=== PATIENT | female | born 1950 | race Caucasian/White ===

== ENCOUNTER → 2019-05-25 | Outpatient (CLI) | payer MEDICARE, OTHER ==
[~2019-05-25] MED LIST: ASPIR 8181 M1 PO; BENADRYL25 MG PO; CEFPODOXIME PR200 M1 PO; CLONIDINE0.1 PO; COZAAR 50 MG TA50 M2 PO; DUONEB 2.5-0.5 M3 ML INH; FLONASE 0.05%50 MCG NASAL; HYDROCHLOROTH12.5 M1 PO; IBUPROFEN 800800 M1 PO; LEVAQUIN 500 M500 M1 PO; LIPITOR10 MG PO; MACULAR VITAMI1 EACH PO; METFORMIN HCL500 MG PO; MINOCIN100 MG PO; MUCINEX TA600 MG/TA1 PO; OSELB75 PO; OXYCODONE HCL10 MG PO; PREDNISONE 20 M20 MG PO; TESSALON PERLE100 MG PO; TRANSDERM-SCO1 PATC1 TRANSDERM; VITAMIN B-12500 MCG PO
--- NOTE | 2019-05-25 13:44 | 2DMMODE ---
[place] [address] 2 D/M-MODE ECHOCARDIOGRAM Name: TIMBO CHI Sandhya Room: [facility]#: [id number] Admission: 05/25/19 Attend Phys: Sohail Decker MD Discharge: Date of : 46 Date of Service: 05/25/19 1344 Report #: [id number] THIS REPORT FOR: //name// APPROVED REPORT Study performed: 05/25/2019 09:11:28 EXAM: Comprehensive 2D, Doppler, and color-flow Echocardiogram Patient Location: Out-Patient BSA: 1.96 HR: 82 bpm BP: 130/82 mmHg Other Information Study Quality: Good Indications Aortic Valve Disease 2D Dimensions IVSd: 13.64 (7-11mm) LVOT Diam: 21.01 (18-24mm) LVDd: 42.09 mm PWd: 13.18 (7-11mm) Ascending Ao: 29.46 (22-36mm) LVDs: 22.80 (25-40mm) Aortic Root: 28.94 mm Volumes Left Atrial Volume (Systole) LA ESV Index: 20.40 mL/m2 Aortic Valve AoV Peak Matias.: 2.93 m/s AO Peak Gr.: 34.35 mmHg LVOT Max P.61 mmHg AO Mean Gr.: 21.06 mmHg LVOT Mean P.14 mmHg LVOT Max V: 1.29 m/s AO V2 VTI: 54.20 cm LVOT Mean V: 0.81 m/s NELLIE (VTI): 1.52 cm2 LVOT V1 VTI: 23.71 cm Mitral Valve MV Peak Gr.: 8.32 mmHg MV Mean Gr.: 3.83 mmHg E/A Ratio: 0.64 MV Decel. Time: 275.57 ms MV E Max Matias.: 0.79 m/s MV PHT: 79.91 [place] [address] 2 D/M-MODE ECHOCARDIOGRAM Name: TIMBO CHI Room: [facility]#: [id number] Admission: 05/25/19 Attend Phys: Sohail Decker MD Discharge: Date of : 46 Date of Service: 05/25/19 1344 Report #: [id number] MVA (PHT): 2.75 cm2 TDI E/Lateral E': 15.80 E/Medial E': 13.17 Medial E' Matias.: 0.06 m/s Lateral E' Matias.: 0.05 m/s Pulmonary Valve PV Peak Matias.: 0.98 m/s PV Peak Gr.: 3.82 mmHg Tricuspid Valve RAP Estimate: 5.00 mmHg TR Peak Gr.: 25.85 mmHg RVSP: 30.85 mmHg PA Pressure: 30.85 mmHg Left Ventricle The left ventricle is normal size. There is normal LV segmental wall motion. Mild concentric left ventricular hypertrophy. Left ventricular systolic function is normal. The left ventricular ejection fraction is within the normal range. LVEF is 60-65%. Grade I - abnormal relaxation pattern. Right Ventricle The right ventricle is normal size. The right ventricular systolic function is normal. Atria The left atrium size is normal. The right atrium size is normal. Aortic Valve Aortic valve is mildly calcified. No aortic regurgitation is present. Mild aortic stenosis. Mitral Valve Moderate mitral annular calcification. There is no mitral valve regurgitation noted. No evidence of mitral valve stenosis. Tricuspid Valve The tricuspid valve is normal in structure. Mild tricuspid regurgitation. Pulmonic Valve The pulmonary valve is normal in structure. There is no pulmonic [place] [address] 2 D/M-MODE ECHOCARDIOGRAM Name: TIMBO CHI Room: [facility]#: [id number] Admission: 05/25/19 Attend Phys: Sohail Decker MD Discharge: Date of : 46 Date of Service: 05/25/19 1344 Report #: [id number] Great Vessels The aortic root is normal in size. IVC is normal in size and collapses >50% with inspiration. Pericardium There is no pericardial effusion. <Conclusion> The left ventricle is normal size. Mild concentric left ventricular hypertrophy. Left ventricular systolic function is normal. The left ventricular ejection fraction is within the normal range. LVEF is 60-65%. Grade I - abnormal relaxation pattern. The right ventricle is normal size. The left atrium size is normal. Aortic valve is mildly calcified. No aortic regurgitation is present. Mild aortic stenosis. Moderate mitral annular calcification. There is no mitral valve regurgitation noted. No evidence of mitral valve stenosis. The tricuspid valve is normal in structure. Mild tricuspid regurgitation. IVC is normal in size and collapses >50% with inspiration. There is no pericardial effusion. There is normal LV segmental wall motion. <ELECTRONICALLY SIGNED> By: Harris Cordero MD, FACC 05/25/19 1344 1344 1344 Harris Cordero MD, FACC /INF
== END ==
LOC: M.CRD 05-18 08:00
DX: I08.3 Combined rheumatic disorders of mitral, aortic and tricuspid valves (principal); Z88.1 Allergy status to other antibiotic agents; Z91.040 Latex allergy status; Z91.048 Other nonmedicinal substance allergy status

== ENCOUNTER 2019-07-26 19:56 | Emergency (ER) | payer MEDICARE, OTHER ==
[~2019-07-26] VITALS: Ht 162.6 cm; Wt 90.7 kg
[2019-07-26 20:34] LABS: ABSOLUTE EOSINOPHILS 0.2 thou/uL (0.0-0.7); ABSOLUTE MONOCYTES 0.5 thou/uL (0.0-1.2); ABSOLUTE NEUTROPHILS 4.4 thou/uL (1.6-8.1); BASOPHILS 0.6 %; EOSINOPHILS 2.3 %; HEMATOCRIT 37.5 % (37.0-47.0); HEMOGLOBIN 12.7 gm/dL (12.0-15.0); LYMPHOCYTES 27.9 %; MCH 28.8 pg (26.0-34.0); MCHC 33.9 g/dL (28.0-37.0); MCV 84.9 fL (80.0-100.0); MONOCYTES 6.5 %; MPV 7.3 fl. (7.2-11.1); NUCLEATED RBCS 0 /100WBC; PLATELET COUNT* 231 thou/uL (150-400); POLYS 62.7 %; RBC 4.42 mil/uL (4.20-5.00); RDW-CV 13.8 % (10.5-14.5)
[2019-07-26 20:36] LABS: POTASSIUM 3.3 mmol/L (3.5-5.1)
[2019-07-26 20:41] LABS: ALBUMIN 4.1 g/dL (3.4-5.0); TOTAL BILIRUBIN 0.3 mg/dL (<0.1-1.0); TOTAL PROTEIN 8.4 g/dL (6.4-8.2)
[2019-07-26 22:16] VITALS: BP 138/54
--- NOTE | 2019-07-27 10:23 | EKG ---
[place] [address] ELECTROCARDIOGRAM REPORT Name: TIMBO CHI Room: [facility]#: [id number] Admission: 07/26/19 Attend Phys: Discharge: 07/26/19 Date of : 46 Report #: [id number] THIS REPORT FOR: //name// [facility] ED Test Date: 2019-07-26 Test Time: 20:07:39 Pat Name: TIMBO CHI Department: Room: Gender: F [employer]er: KELLY : 1950 Requested By: Fay Adkins Order Number: [id number] Reading MD: Sohail Decker Measurements Intervals [place] Rate: 106 P: 69 NV: 186 QRS: 1 QRSD: 100 T: 96 QT: 361 QTc: 480 Interpretive Statements Sinus tachycardia Probable left atrial enlargement Repol abnrm suggests ischemia, lateral leads Compared to ECG 02/08/2016 04:45:04 Early repolarization now present Sinus rhythm no longer present Electronically Signed On 07-27-2019 10:22:43 [employer] by Sohail Decker [email or web address] <ELECTRONICALLY SIGNED> By: Sohail Decker MD, [facility] 07/27/19 1022 06 06 Sohail Decker MD, FACC /EPI
== END 2019-07-26 22:17 | disposition home or self-care (01) ==
LOC: M.ERS 19:56
PROVIDERS: Emergency Medicine
DX: I16.0 Hypertensive urgency (principal); E11.9 Type 2 diabetes mellitus without complications; E78.00 Pure hypercholesterolemia, unspecified; I10 Essential (primary) hypertension; Z91.040 Latex allergy status; Z88.1 Allergy status to other antibiotic agents; Z88.8 Allergy status to other drugs, medicaments and biological substances; Z90.49 Acquired absence of other specified parts of digestive tract